=== PATIENT | female | born 1960 | race Hispanic/Latino ===

== ENCOUNTER 2018-09-06 06:01 | Outpatient (CLI) | payer BC | END 2018-09-06 06:02 | disposition home or self-care (01) | LOC: CARDIO 06:01 ==

== ENCOUNTER 2018-10-02 07:54 | Outpatient (CLI) | payer BC | END 2018-10-02 07:55 | disposition home or self-care (01) | LOC: RAD 07:54 | DX: I73.9 Peripheral vascular disease, unspecified (principal) ==

== ENCOUNTER 2018-10-02 17:05 | Emergency (ER) | payer BC ==
[2018-10-02 17:05] VITALS: BMI 31.6
[2018-10-02 17:21] VITALS: BP 144/88; PULSE 110; RESP 17; TEMP 98.2; O2SAT 96
--- NOTE | 2018-10-02 17:47 | ED PDOC ---
Arrival/HPI - General Chief Complaint: Upper Extremity Problem/Injury Time Seen by Provider: 10/02/18 17:30 Historian: Patient - History of Present Illness Narrative History of Present Illness (Text): 10/02/18 17:50 57 year old F with no significant pmh presents with cc of swollen left arm. Patient reports receiving an inpatient CT w/ IV contrast this morning. The contrast collected in her arm and caused it to swell. She was told the swelling will resolve in the upcoming days. She denies any further complaints. Symptom Onset: Sudden Symptom Course: Unchanged Activities at Onset: Light Past Medical History - Provider Review Nursing Documentation Reviewed: Yes - Reproductive Menopause: Yes - Cardiac Hx Cardiac Disorders: Yes Other/Comment: RO PVD - Pulmonary Hx Respiratory Disorders: No - Neurological Hx Neurological Disorder: No - HEENT Hx HEENT Disorder: No - Renal Hx Renal Disorder: No - Endocrine/Metabolic Hx Endocrine Disorders: No - Hematological/Oncological Hx Blood Disorders: No - Integumentary Hx Dermatological Disorder: No - Musculoskeletal/Rheumatological Hx Musculoskeletal Disorders: No - Gastrointestinal Hx Gastrointestinal Disorders: No - Genitourinary/Gynecological Hx Genitourinary Disorders: No - Psychiatric Hx Psychophysiologic Disorder: No Hx Substance Use: No Family/Social History - Physician Review Nursing Documentation Reviewed: Yes Family/Social History: Unknown Family HX Smoking Status: Smoker Currrent Status Unknown Hx Alcohol Use: Yes Frequency of alcohol use: Socially Hx Substance Use: No Allergies/Home Meds Allergies/Adverse Reactions: Allergies No Known Allergies Allergy (Verified 10/02/18 17:16) Home Medications: Home Meds Medication Instructions Recorded Confirmed No Known Home Med 09/06/18 10/02/18 Review of Systems - Physician Review All systems were reviewed & negative as marked: Yes - Review of Systems Respiratory: absent: SOB Cardiovascular: absent: Chest Pain Physical Exam - Physical Exam Narrative Physical Exam (Text): 10/02/18 18:01 Constitutional: No acute distress. Head: Normocephalic. Atraumatic. Eyes: PERRL. ENT: Moist mucous membranes. Neck: Supple. Cardiovascular: Regular rate. Chest: No tenderness. Respiratory: Clear to auscultation bilaterally. GI: Soft. Nontender. Nondistended. Back: No CVA tenderness. Musculoskeletal: No tenderness. Left arm edema from elbow to hand, +2 pulses. Motor functions in arm, hand and fingers intact. Sensations to light touch in arm and hand intact. Skin: No rash. Warm, no pallor Neurologic: Alert, no focal deficit. Vital Signs Reviewed: Yes Vital Signs Temp Pulse Resp BP Pulse Ox 10/02/18 17:16 98.2 F 110 H 17 144/88 96 Temperature: Afebrile Blood Pressure: Normal Pulse: Regular Respiratory Rate: Normal Appearance: Positive for: Well-Appearing, Non-Toxic, Comfortable Pain Distress: None Mental Status: Positive for: Alert and Oriented X 3 Medical Decision Making ED Course and Treatment: 10/02/18 18:03 Impression: 57 year old F presents with cc of swollen left arm - Scribe Statement The provider has reviewed the documentation as recorded by the Zohaib Torres All medical record entries made by the Miteshiblorena were at my direction and personally dictated by me. I have reviewed the chart and agree that the record accurately reflects my personal performance of the history, physical exam, medical decision making, and the department course for this patient. I have also personally directed, reviewed, and agree with the discharge instructions and disposition. Disposition/Present on Arrival - Present on Arrival Any Indicators Present on Arrival: No History of DVT/PE: No History of Uncontrolled Diabetes: No Urinary Catheter: No History of Decub. Ulcer: No History Surgical Site Infection Following: None - Disposition Have Diagnosis and Disposition been Completed?: Yes Diagnosis: Injection site extravasation Disposition: HOME/ ROUTINE Disposition Time: 17:46 Patient Plan: Discharge Patient Problems: Current Active Problems Problem Status Onset Injection site extravasation Acute Condition: GOOD Discharge Instructions (ExitCare): IV Infiltration Forms: [employer] (Maltese)
== END 2018-10-02 18:05 | disposition home or self-care (01) ==
LOC: ED 17:05
DX: T80.89XA Other complications following infusion, transfusion and therapeutic injection, initial encounter (principal); Y84.9 Medical procedure, unspecified as the cause of abnormal reaction of the patient, or of later complication, without mention of misadventure at the time of the procedure; Y92.89 Other specified places as the place of occurrence of the external cause